=== PATIENT | female | born 1975 | race Caucasian/White ===

== ENCOUNTER 2017-01-17 09:13 | Emergency (ER) | payer MEDICAID ==
[~2017-01-17] VITALS: Ht 160 cm; Wt 145.0 kg
[~2017-01-17 09:13] MED LIST: ALBU8.5H3 INH; GUAI118L94 PO; PRED20TA PO
[2017-01-17 09:16] VITALS: Ht 160 cm; Wt 145.0 kg
[2017-01-17] MEDS ORDERED: ALBUTEROL 0.5% (NEB) 2.5 MG/0.5 ML AMP INH STA ×2 (09:24→10:44)
[2017-01-17] MEDS ORDERED: METHYLPREDNISOLONE 125 MG INJ IV STA (09:24)
[2017-01-17] MEDS ORDERED: SOD CHLORIDE 0.9% 1,000 ML IV STA (09:24)
[2017-01-17] MEDS ORDERED: IPRATROPIUM (NEB) 0.5 MG/2.5 ML AMP INH STA ×2 (09:24→10:44)
[2017-01-17] MEDS ORDERED: LABETALOL HCL 20MG INJ IV ONE ×2 (09:30→12:30)
[2017-01-17 10:04] LABS: ADD SCAN DIFF NO
[2017-01-17 10:13] LABS: BASOPHIL # 0.1 10^3/ul (0.0-0.1); BASOPHILS % 0.5 % (0.0-2.0); EOSINOPHILS # 0.6 10^3/ul (0.0-0.5); EOSINOPHILS % 5.3 % (0.0-7.0); HEMATOCRIT 41.9 % (37.0-47.0); HEMOGLOBIN 14.4 g/dl (12.0-16.0); LYMPHOCYTES # 2.2 10^3/ul (0.8-2.9); LYMPHOCYTES % 20.4 % (15.0-51.0); MEAN CORPUSCULAR HEMOGLOBIN 32.4 pg (29.0-33.0); MEAN CORPUSCULAR HGB CONC 34.4 g/dl (32.0-37.0); MEAN CORPUSCULAR VOLUME 94.2 fl (82.0-101.0); MEAN PLATELET VOLUME 10.8 fl (7.4-10.4); MONOCYTE # 0.7 10^3/ul (0.3-0.9); MONOCYTES % 6.7 % (0.0-11.0); NEUTROPHILS % 66.7 % (39.0-77.0); PLATELET COUNT 146 10^3/UL (140-415); RED BLOOD COUNT 4.45 10^6/ul (4.20-5.40); RED CELL DISTRIBUTION WIDTH 12.9 % (11.5-14.5); WHITE BLOOD COUNT 10.5 10^3/ul (4.8-10.8)
[2017-01-17 10:37] LABS: CHLORIDE 102 mmol/L (97-110); SODIUM 142 mmol/L (135-144)
[2017-01-17 10:38] LABS: POTASSIUM 3.9 mmol/L (3.5-5.1)
[2017-01-17 10:40] LABS: ALANINE AMINOTRANSFERASE 31 IU/L (13-69); ALBUMIN/GLOBULIN RATIO 1.14; ALKALINE PHOSPHATASE 88 IU/L (42-121); ANION GAP 16 (8-16); ASPARTATE AMINO TRANSFERASE 20 IU/L (15-46); BILIRUBIN,INDIRECT 0.5 mg/dl (0-1.1); BILIRUBIN,TOTAL 0.5 mg/dl (0.2-1.3); BLOOD UREA NITROGEN 12 mg/dl (7-20); CARBON DIOXIDE 28 mmol/L (21-31); CREATININE 0.63 mg/dl (0.44-1.00); TOTAL PROTEIN 7.5 g/dl (6.1-8.1)
[2017-01-17 10:41] LABS: CALCIUM 8.6 mg/dl (8.4-10.2); GLUCOSE 125 mg/dl (70-220)
[2017-01-17 10:49] LABS: B-TYPE NATRIURETIC PEPTIDE 39 PG/ML (0-125)
[2017-01-17 10:54] LABS: TROPONIN-I < 0.012 ng/ml (0.00-0.12)
--- NOTE | 2017-01-17 11:10 | RADRPT ---
PROCEDURE: XR Chest. TECHNIQUE: Single frontal radiograph. CLINICAL INDICATION: severe asthma with productive cough. COMPARISON: None. FINDINGS: There is bibasilar atelectasis. The cardiac silhouette is enlarged and/or magnified in the context of low lung volumes. No focal consolidation, pneumothorax, or pleural effusions. IMPRESSION: 1. Bibasilar atelectasis without a focal consolidation. RPTAT: EE .Santiago Watkins MD, MD Date Time Electronically viewed and signed by .Santiago Watkins MD, MD on 01/17/2017 11:14 .C/
[2017-01-17] MEDS ORDERED: MAGNESIUM SULFATE 2 GM/50 ML 50 ML IVPB STA (11:20)
--- NOTE | 2017-01-17 11:27 | ERA ---
ER Documentation Chief Complaint Date/Time DATE: 01/17/17 TIME: 11:21 Chief Complaint sob x last night hx asthma HPI This is a very pleasant 41-year-old female with a known history of asthma. She indicates that over the past 12 hours she has had severe difficulty in breathing which he believes is worsened due to allergies from pollen which exacerbates her asthma. She utilized her inhaler multiple times prior to arrival but had no relief of her symptoms. Given that the dyspnea progressively worsened she immediately came to the emergency department to be further evaluated. She has never required intubation in the past nor has she had a hospital visit in the past year for her asthma. Contrary to the triage note the patient states she is not short of breath at rest or exertion and that this difficulty breathing is similar nature to her previous asthma attacks. The patient denies a headache chest pain or changes in vision. She denies any recent travel. She does indicate she has had a productive cough with whitish sputum but has had no fevers no shaking no chills. ROS All systems reviewed and are negative except as per history of present illness. Medications Home Meds No Active Prescriptions or Reported Meds Allergies Allergies: Coded Allergies: No Known Allergy (Unverified , 01/17/17) PMhx/Soc Medical and Surgical Hx: pt denies Medical Hx, pt denies Surgical Hx Hx Psychiatric Problems: No Hx Miscellaneous Medical Probl: No Hx Alcohol Use: No Hx Substance Use: No Hx Tobacco Use: No Smoking Status: Never smoker Physical Exam Vitals Vital Signs Date Time Temp Pulse Resp B/P Pulse Ox O2 Delivery O2 Flow Rate FiO2 01/17/17 11:01 75 20 100 21 01/17/17 10:37 72 17 158/101 100 01/17/17 09:30 102 22 100 21 01/17/17 09:26 90 22 176/133 99 Room Air 01/17/17 09:16 98.2 100 20 229/112 98 Physical Exam Constitutional:Well-developed. Well-nourished. Patient in severe respiratory distress peer HEENT:Normocephalic. Atraumatic.Pupils were equal round reactive to light. Moist mucous membranes.No tonsillar exudates. Fundoscopy exam showed sharp optic disks bilaterally and venous pulsations were present Neck: No nuchal rigidity. No lymphadenopathy. No posterior cervical spine tenderness or step-offs. Respiratory: Patient using accessory muscles of respiration. Unable to speak more than 2 words at a time before becoming short of breath. Wheezing heard on end auscultation bilaterally. Tachypneic Cardiovascular: Regular rate regular rhythm.No murmurs. No rubs were appreciated.S1, S2 normal. Distal pulses are palpable 2+ bilaterally. GI: Abdomen was soft. Nontender. Non Distended. No pulsatile abdominal masses or bruits. No rebound. No guarding. Bowel sounds were present and normal. Muscle skeletal: Full range of motion of both the upper and lower extremities bilaterally.Normal muscle tone.No assymetrical calf tenderness or swelling. Skin: No petechia, no purpura. No lesions on the palms or the soles of the feet. No maculopapular rash. NEURO: Patient was alert, awake, orientated x3.No facial droop. Gait observed and normal with no ataxia.Speech had regular rate and rhythm. No focal neurological deficits. Result Diagram: 01/17/17 0942 01/17/17 0942 Results 24 hrs Laboratory Tests Test 01/17/17 09:42 White Blood Count 10.510^3/ul Red Blood Count 4.4510^6/ul Hemoglobin 14.4g/dl Hematocrit 41.9% Mean Corpuscular Volume 94.2fl Mean Corpuscular Hemoglobin 32.4pg Mean Corpuscular Hemoglobin Concent 34.4g/dl Red Cell Distribution Width 12.9% Platelet Count 25809^3/UL Mean Platelet Volume 10.8fl Neutrophils % 66.7% Lymphocytes % 20.4% Monocytes % 6.7% Eosinophils % 5.3% Basophils % 0.5% Nucleated Red Blood Cells % 0.0/100WBC Neutrophils # 7.010^3/ul Lymphocytes # 2.210^3/ul Monocytes # 0.710^3/ul Eosinophils # 0.610^3/ul Basophils # 0.110^3/ul Nucleated Red Blood Cells # 0.010^3/ul Sodium Level 142mmol/L Potassium Level 3.9mmol/L Chloride Level 102mmol/L Carbon Dioxide Level 28mmol/L Anion Gap 16 Blood Urea Nitrogen 12mg/dl Creatinine 0.63mg/dl Glucose Level 125mg/dl Calcium Level 8.6mg/dl Total Bilirubin 0.5mg/dl Direct Bilirubin 0.00mg/dl Indirect Bilirubin 0.5mg/dl Aspartate Amino Transf (AST/SGOT) 20IU/L Alanine Aminotransferase (ALT/SGPT) 31IU/L Alkaline Phosphatase 88IU/L Troponin I < 0.012ng/ml B-Type Natriuretic Peptide 39PG/ML Total Protein 7.5g/dl Albumin 4.0g/dl Globulin 3.50g/dl Albumin/Globulin Ratio 1.14 Current Medications Medications (Trade) Dose Ordered Sig/Amarilys Route PRN Reason Start Time Stop Time Status Last Admin Dose Admin Sodium Chloride (NS) 1,000 ml @ 1,000 mls/hr Q1H STAT IV 01/17/17 09:24 01/17/17 10:23 DC 01/17/17 09:46 Albuterol (Proventil 0.5% (Neb)) 10 mg ONCE STAT INH 01/17/17 09:24 01/17/17 09:26 DC 01/17/17 09:32 Ipratropium [place] (Atrovent 0.02% (Neb)) 1 mg ONCE STAT INH 01/17/17 09:24 01/17/17 09:26 DC 01/17/17 09:33 Methylprednisolone Sodium Succinate (Solu-Medrol) 125 mg ONCE STAT IV 01/17/17 09:24 01/17/17 09:26 DC 01/17/17 09:46 Labetalol HCl (Labetalol) 10 mg ONCE ONCE IV 01/17/17 09:30 01/17/17 09:31 DC 01/17/17 09:46 Albuterol (Proventil 0.5% (Neb)) 5 mg ONCE STAT INH 01/17/17 10:44 01/17/17 10:45 DC 01/17/17 10:57 Ipratropium [place] (Atrovent 0.02% (Neb)) 1 mg ONCE STAT INH 01/17/17 10:44 01/17/17 10:45 DC 01/17/17 10:57 Procedures/MDM The patient presented to the emergency department with dyspnea. My differential diagnosis included but was not limited to upper airway obstruction, CHF, pulmonary embolism, cardiac ischemia, pneumonia, pneumothorax, anemia, drug overdose, pulmonary edema, COPD or asthma. The patient was immediately placed in a lawn care worker continuous pulse oximetry and IV access was established by nursing staff. The patients physical exam findings and presentation was suggestive of a severe asthma attack. The patient received continuous nebulizer treatments of albuterol Atrovent was given 125 mg of Solu-Medrol. The patient was no longer using accessory muscles of respiration however upon reevaluation she still continued to have significant wheezing on end auscultation bilaterally. At this time the patient received IV magnesium. She received another continuous nebulizer treatment over an hour and the wheezing still persisted. Therefore at this time I did feel the patient required admission for continuous nebulizer treatments will be placed on a lawn care worker due to her receiving a significant amount of albuterol which could result in sinus tachycardia. This patient also presented to the emergency department with severely elevated blood pressure in addition to her asthma exacerbation. My differential diagnosis included but was not limited to conditions that could end-organ damage such as acute coronary syndrome, acute pulmonary edema, aortic dissection , subarachnoid hemorrhage, intracerebral hemorrhage, cerebral infarction, withdrawal syndromes from beta blockers, or states of catecholamine excess such as pheochromocytoma or drug intoxication. Ancillary lab work was obtained. There was no elevation in the BUN and creatinine to suggest acute renal failure. Electrolytes were normal. Cardiac enzyme was normal and the 12 lead EKG showed no acute ischemic changes or left ventricular hypertrophy. 12 Lead EKG tracing ordered and reviewed by myself showed: Normal sinus rhythm of 90 bpm and no arrhythmia. RI interval normal. QRS duration normal. No ST segment elevation No ST segment depression. No changes consistent with acute ischemia. Given that the patient had an absence of cerebral, ocular, cardiac or renal damage the hypertensive urgency was treated with IV labetolol in the emergency room with improvement of the patient's blood pressure. She has no prior history of hypertension and I did feel her elevated blood pressure could be exacerbated by her severe difficulty breathing when she arrived. I also obtained a chest radiograph which showed no infiltrates pneumothorax or pleural effusion with bilateral atelectasis She will be admitted to the hospitalist Dr. Ta. Critical Care: Time: 45 minutes Treatments/Evaluations: Close monitoring and treatment of unstable vital signs, cardiorespiratory, and neurologic status, while maintaining tight balance of fluid, respiratory, and cardiac interventions. Time does not include performing any of the above billable procedures. Departure Diagnosis: Primary Impression: Asthma with status asthmaticus Qualified Code: J45.52 - Severe persistent asthma with status asthmaticus Additional Impression: Hypertensive urgency Condition: Serious SINCEREJOSE WALLIS Jan 17, 2017 11:27
[2017-01-17] MEDS ORDERED: SOD CHLORIDE 0.45% 1,000 ML IV SCH (11:45)
[2017-01-17] MEDS ORDERED: METHYLPREDNISOLONE 125 MG INJ IV SCH (12:00)
[2017-01-17] MEDS ORDERED: hydrALAzine 20 MG INJ IV PRN (12:00)
[2017-01-17] MEDS ORDERED: morphine 2 MG INJ IV PRN (12:00)
[2017-01-17] MEDS ORDERED: NITROGLYCERIN (SL) 0.4 MG TAB SL PRN (12:00)
[2017-01-17] MEDS ORDERED: ACETAMINOPHEN 325 MG TAB PO PRN ×2 (12:00→13:00)
[2017-01-17] MEDS ORDERED: DOCUSATE SODIUM 100 MG CAP PO PRN (12:00)
[2017-01-17] MEDS ORDERED: ONDANSETRON 4 MG INJ IV PRN ×2 (12:00→13:00)
[2017-01-17] MEDS ORDERED: LORAZEPAM 2 MG INJ IV PRN (12:00)
[2017-01-17] MEDS ORDERED: NA PHOSPHATE/BIPHOS 133 ML ENEMA PR PRN (12:00)
[2017-01-17] MEDS ORDERED: HYDROCODONE/APAP (5/325) TAB PO PRN (12:00)
[2017-01-17] MEDS ORDERED: NACL 0.9% 3 ML SYG IV SCH (12:00)
[2017-01-17] MEDS ORDERED: MAGNESIUM HYDROXIDE 30ML CUP PO PRN (12:00)
[2017-01-17] MEDS ORDERED: LEVOFLOXACIN 750MG/D5W (PMX) 150 ML IVPB SCH (12:30)
[2017-01-17] MEDS ORDERED: ALBUTEROL/IPRATROPIUM (NEB) 3 ML AMP HHN SCH (13:00)
[2017-01-17] MEDS ORDERED: ALBU8.5H3 INH (15:46)
[2017-01-17] MEDS ORDERED: AMLO2.5T2 PO (15:46)
--- NOTE | 2017-01-17 15:46 | PDOCDIS ---
Discharge Instructions CONDITION Patient Condition: Stable HOME CARE INSTRUCTIONS: Diet Instructions: Low Fat /Cholesterol ACTIVITY: Activity Restrictions: Slowly Increase Activity FOLLOW UP/APPOINTMENTS Appointments Please take your medications as prescribed, see your doctor in the clinic in 1 week. JONI SULLIVAN Jan 17, 2017 15:46
[2017-01-17 16:06] VITALS: BP 166/88; PULSE 93; RESP 20
--- NOTE | 2017-01-17 16:10 | HP ---
DATE OF ADMISSION: 01/17/2017 CHIEF COMPLAINT: Shortness of breath. HISTORY OF PRESENT ILLNESS: A 41-year-old female with past medical history of hypertension and asth ma who has been having shortness of breath symptoms going on over the past half day. She had diffic ulty breathing as well. She thinks that her symptoms got worse secondary to exposure to pollen. Kael greenberg normally takes ProAir at home, but she ran out 2 days ago as well. Denied any fevers or chills. No headaches or dizziness or loss of consciousness. No upper or lower GI bleeding. No nausea, vomi ting, no diarrhea, no constipation. She is having coughing, but has been of whitish sputum, but aga in no fevers or chills. When she came into the ER today, she was found with significant wheezing an d has been given breathing treatments x2. She was also found with hypertensive urgency, was given l abetalol IV x1 as well for that. Systolic blood pressure was at 229 diastolic was 112. She also go t magnesium in the ER as well. The patient says that she has had asthma for about 14 years. She ap parently has never been intubated, and apparently it is unclear, but it looks like she has not been hospitalized for any asthma exacerbations in the past. PAST MEDICAL HISTORY: As above. ALLERGIES: NO KNOWN DRUG ALLERGIES. HOME MEDICATIONS: Again, she takes ProAir inhaled q.6h. p.r.n. PAST SURGICAL HISTORY: in the past. SOCIAL HISTORY: Negative for smoking, drinking, or IV drug abuse. FAMILY HISTORY: Noncontributory. PHYSICAL EXAMINATION: VITAL SIGNS: T-max 98.2, pulse 72 to 102, blood pressure 229 to 158 systolic over 112 to 100 diasto lic, saturating at 98% on room air. GENERAL: The patient is sitting up in bed, answering questions appropriately, in mild distress but alert. She is obese. HEENT: Pupils equal, round, react to light. Extraocular muscles intact. NECK: Supple, no thyromegaly. LUNGS: Slight wheezing heard. Expiratory wheezes heard bilaterally at the bases, but no rhonchi, o therwise clear. CARDIOVASCULAR: S1, S2 heard. No rubs or gallops. ABDOMEN: Soft, nontender, nondistended. Normal bowel sounds. No rebound or guarding. MUSCULOSKELETAL: No lower extremity edema bilaterally. NEUROLOGIC: No focal deficits. LABORATORIES: CBC is normal. Comprehensive metabolic panel is normal. Serum hCG test was negative . The chest x-ray showed bibasilar atelectasis with no focal consolidation. ASSESSMENT AND PLAN: A 41-year-old female coming in with signs of asthma exacerbation and hypertens jay urgency. 1. Asthma exacerbation. We will admit her, put her on breathing treatments q.6 h. around the clock . We can give her IV Solu-Medrol as well. Check TSH, A1c and lipid panel. Monitor her breathing s tatus, supplemental oxygen as needed. 2. Hypertensive emergency. Again, put her on hydralazine p.r.n. systolic greater than 160. Consid er starting her on p.o. blood pressure medicines as well. She does not take that at home presently, although she has been told by one clinic in the past that she does have hypertension. 3. Gastrointestinal prophylaxis, proton pump inhibitor.. 4. Deep venous thrombosis prophylaxis, heparin subcutaneously. Dictated By: JONI ORONA Conf#: [id number] DID#: [id number]
--- NOTE | 2017-01-17 16:21 | DS ---
DATE OF ADMISSION: 01/17/2017 DATE OF DISCHARGE: 01/17/2017 HOSPITAL COURSE: The patient came in with asthma exacerbation of hypertensive urgency. She was jesse efly admitted and given breathing treatments x2 and also IV steroids x2 and also magnesium. Her antonina athing symptoms improved. She had run out of her ProAir HFA and medicines 2 days prior to admission . She was able to ambulate and tolerate p.o. diet. She had hypertensive urgency that was improved with the labetalol and also hydralazine and because her symptoms are improved, she will be discharge d home today in improved condition. She will be sent with Norvasc 2.5 mg p.o. daily and also ProAir HFA 1 puff inhaled q.6 hours p.r.n. shortness of breath. She will need to follow up with her [facility] doctor the next 5 to 7 days. FINAL DIAGNOSES: 1. Shortness of breath secondary to asthma exacerbation. 2. Essential hypertension, now on new blood pressure medicines 3. Obesity, educated about diet cessation. OPERATION: 40 minutes. Dictated By: JONI ORONA Conf#: [id number] DID#: [id number]
[2017-01-17] MEDS ORDERED: HEPARIN 5,000 UNIT/0.5 ML VIAL SC SCH (21:00)
[2017-01-18] MEDS ORDERED: PANTOPRAZOLE (EC) 40 MG TAB PO SCH (06:00)
== END 2017-01-17 16:12 | disposition home or self-care (01) ==
LOC: E/R 09:13 → MERGE 09:13 → EDBD 09:13 → E/R 16:12
DX: J45.52 Severe persistent asthma with status asthmaticus (principal); R40.2252 Coma scale, best verbal response, oriented, at arrival to emergency department; I16.0 Hypertensive urgency; R40.2142 Coma scale, eyes open, spontaneous, at arrival to emergency department; R40.2362 Coma scale, best motor response, obeys commands, at arrival to emergency department
CPT/HCPCS: 71010; 80053; 83880; 84439; 84484; 84703; 85025; 87040; 93005; 94644; 94645; 94664; J1956; J2930; J3475; J7030; Z7610; 96374; 96375; 96376

== ENCOUNTER 2017-04-20 15:35 | Emergency (ER) | payer MEDICAID ==
[~2017-04-20] VITALS: Ht 152.4 cm; Wt 143.0 kg
[~2017-04-20 15:35] MED LIST changes: +AMLO2.5T2 PO
[2017-04-20 15:39] VITALS: Ht 152.4 cm; Wt 143.0 kg
--- NOTE | 2017-04-20 17:19 | ERD ---
ER Documentation Chief Complaint Date/Time DATE: 04/20/17 TIME: 17:14 Chief Complaint r knee pain x 2 weeks denies injury HPI 41-year-old female complaining of right knee pain 2 weeks. Patient stated that she has pain when she is walking, or when she is bending her knees. Denies any injury or falls. She made an appointment to see her PCP, but appointment is not until next month. Patient denies prior history of hypertension or any other medical history. Denies headache, chest pain, shortness of breath, or urinary symptoms. ROS All systems reviewed and are negative except as per history of present illness. Medications Home Meds Active Scripts Lisinopril/Hydrochlorothiazide (Lisinopril-Hctz 20-25 mg Tab) 1 Each Tablet, 1 EACH PO BID, #60 TAB Prov:LYNETTE AVENDAÑO NP 04/20/17 Acetaminophen* (Tylophen*) 500 Mg Capsule, 1 CAP PO Q6H Y for PAIN AND OR ELEVATED TEMP, #20 CAP Prov:LYNETTE AVENDAÑO NP 04/20/17 Amlodipine Besylate* (Norvasc*) 2.5 Mg Tablet, 2.5 MG PO DAILY for 30 Days, TAB Prov:RAMIRNA LIUEEP S. 01/17/17 Albuterol Sulfate* (Proair HFA*) 8.5 Gm Hfa.aer.ad, 2 PUFF INH Q6, #1 INHALER Prov:RAHI,JONI S. 01/17/17 Guaifenesin-Codeine Phosphate* (Guaifenesin* with Codeine Liq) 120 Ml Liquid, 5 ML PO Q4H for COUGH, #60 ML Prov:TYRESE MUNOZ NP 01/30/16 Albuterol Sulfate* (Proair HFA*) 8.5 Gm Hfa.aer.ad, 2 PUFF INH Q4H Y for WHEEZING AND SOB, #1 INHALER Prov:TYRESE MUONZ NP 01/30/16 Prednisone* (Prednisone*) 20 Mg Tab, 60 MG PO DAILY for 5 Days, TAB Prov:TYRESE MUNOZ NP 01/30/16 Reported Medications [none] Unknown Strength No Conflict Check 01/30/16 Allergies Allergies: Coded Allergies: No Known Drug Allergies (Verified Allergy, Mild, 12/12/14) PMhx/Soc History of Surgery: Yes (C SECTION 1X) Anesthesia Reaction: No Hx Neurological Disorder: No Hx Respiratory Disorders: Yes (ASTHMA) Hx Cardiac Disorders: Yes (boarderline htn) Hx Psychiatric Problems: No Hx Miscellaneous Medical Probl: No Hx Alcohol Use: No Hx Substance Use: No Hx Tobacco Use: No Physical Exam Vitals Vital Signs Date Time Temp Pulse Resp B/P Pulse Ox O2 Delivery O2 Flow Rate FiO2 04/20/17 16:38 224/103 04/20/17 15:39 98.5 89 18 191/103 98 Physical Exam General: Well-developed, morbidly obese, conscious and coherent, in no distress Skin: Warm and dry without rash, good texture and turgor Head: Normocephalic without evidence of trauma Eyes: Sclera and conjunctivae normal; pupils equal, round, and reactive to light; extraocular movements are intact Chest: Normal AP diameter. Good expansion without retractions. Nontender. Lungs are clear to auscultate bilaterally with good tidal volume Heart: Regular rate and rhythm. No murmur, rub, or gallops heard Abdomen: Soft and nontender without masses, guarding, or rebound. Bowel sounds are active. No hepatosplenomegaly Back: Without spinal or CVA tenderness Pelvis: Nontender to palpation and stable to compression Extremities: Full range of motion. Good strength bilaterally. No clubbing, cyanosis, or edema. Peripheral pulses are intact. Sensation intact. Right knee mildly tender at the medial joint line, crepitus noted with passive range of motion. Neuro: Alert and oriented 4, GCS 15. Cranial nerves grossly intact. Motor and sensory exams nonfocal. Moves all extremities. Speech clear. Gait normal Results 24 hrs Current Medications Medications (Trade) Dose Ordered Sig/Amarilys Route PRN Reason Start Time Stop Time Status Last Admin Dose Admin Nicardipine HCl (Cardene) 30 mg ONCE ONCE PO 04/20/17 17:30 04/20/17 17:31 DC 04/20/17 17:16 PROCEDURE: XR Knee. CLINICAL INDICATION: Knee pain TECHNIQUE: AP, lateral, and oblique views of the right knee are available for review. COMPARISON: None available FINDINGS: There is mild osteoarthritic changes with small osteophytes of the knee joint.. No acute fracture or dislocation is seen. No radiopaque foreign body is identified. Alignment is anatomic. There is no significant joint effusion. IMPRESSION: 1. Mild osteoarthritic changes.. 2. No acute fracture or dislocation is seen. RPTAT: AA .Margarito Temple MD, MD Date Time Electronically viewed and signed by .Margarito Temple MD, on 04/20/2017 17:44 .L/ CC: LYNETTE AVENDAÑO WA[employer] Procedures/MDM Morbidly obese 41-year-old female presented to ED with right knee pain 2 weeks. X-ray showed mild osteoarthritic changes without fractures or dislocations. Patient's blood pressure is markedly elevated in the ED, 191/103. Patient denies headache, blurry vision, chest pain, shortness breath, or urinary symptoms. Patient does not have a hypertensive emergency. Likely, her elevated blood pressure is chronic, secondary to obesity. Nicardipine 30 mg p.o. given to the patient in the ED. On recheck, her blood pressure is reduced to 167/74. Patient is given prescription of lisinopril/hydrochlorothiazide, and advised to follow-up with her PCP for further hypertension management. Patient appears well, stable for discharge and outpatient management. Medical decision making shared with patient and family. Education provided to patient and family. Patient and family expressed understanding of the plan. Medications on discharge: Tylenol, hydrochlorothiazide/lisinopril. Follow-up: Primary care provider in 2-3 days or return to ED if worse. The case was reviewed and discussed with Dr. Roberts, who agrees with the plan of care including labs, treatment, and advanced imaging as appropriate. Disclaimer: Inadvertent spelling and grammatical errors are likely due to EHR/ dictation software use and do not reflect on the overall quality of patient care. Also, please note that the electronic time recorded on this note does not necessarily reflect the actual time of the patient encounter. Departure Diagnosis: Primary Impression: Knee pain Laterality: right Chronicity: unspecified Qualified Code: M25.561 - Right knee pain, unspecified chronicity Additional Impression: HTN (hypertension) Hypertension type: essential hypertension Qualified Code: I10 - Essential hypertension Condition: Stable LYNETTE AVENDAÑO NP Apr 20, 2017 17:19
[2017-04-20] MEDS ORDERED: NICARDipine HCL 30 MG CAPSULE PO ONE (17:30)
--- NOTE | 2017-04-20 17:44 | RADRPT ---
PROCEDURE: XR Knee. CLINICAL INDICATION: Knee pain TECHNIQUE: AP, lateral, and oblique views of the right knee are available for review. COMPARISON: None available FINDINGS: There is mild osteoarthritic changes with small osteophytes of the knee joint.. No acute fracture or dislocation is seen. No radiopaque foreign body is identified. Alignment is anatomic. There is no significant joint effusion. IMPRESSION: 1. Mild osteoarthritic changes.. 2. No acute fracture or dislocation is seen. RPTAT: AA .Margarito Temple MD, MD Date Time Electronically viewed and signed by .Margarito Temple MD, MD on 04/20/2017 17:44 .L/
[2017-04-20] MEDS ORDERED: ACET500C5 PO (17:52)
[2017-04-20] MEDS ORDERED: LISI1TAB8 PO (17:53)
[2017-04-20 18:09] VITALS: BP 167/74; PULSE 83; RESP 18
== END 2017-04-20 18:11 | disposition home or self-care (01) ==
LOC: FTE 15:35
DX: M25.561 Pain in right knee (principal); I10 Essential (primary) hypertension; R40.2412 Glasgow coma scale score 13-15, at arrival to emergency department; J45.909 Unspecified asthma, uncomplicated; E66.01 Morbid (severe) obesity due to excess calories; Z68.44 Body mass index [BMI] 60.0-69.9, adult
CPT/HCPCS: 73562; Z7502; Z7610

== ENCOUNTER 2019-01-14 08:15 | Emergency (ER) | payer MEDICAID ==
[~2019-01-14] VITALS: Ht 152.4 cm; Wt 134.0 kg
[~2019-01-14 08:15] MED LIST changes: +ACET500C5 PO; -ALBU8.5H3 INH; +ALBU8.5H8 INH; +LISI1TAB8 PO
[2019-01-14 08:17] VITALS: PULSE 92; RESP 18; Ht 152.4 cm; Wt 134.0 kg
[2019-01-14 08:42] VITALS: BP 160/74
[2019-01-14] MEDS ORDERED: NAPR-985 PO (09:30)
[2019-01-14] MEDS ORDERED: KETO5DRO71 OP (09:30)
[2019-01-14] MEDS ORDERED: LEVO5TAB28 PO (09:30)
--- NOTE | 2019-01-14 10:10 | ERD ---
ER Documentation Chief Complaint Chief Complaint ITCHY EYES SOB HX OF ALLERGIES HPI 43-year-old female presenting with itchy eyes and swelling noted to the left lower jaw space. Patient has no dental pain. Denies any fevers. Denies any visual changes. Has not taken medications for symptoms. Patient is also stat ing she had some nasal congestion. She has history of seasonal allergies. Denies other medical problems. NKDA. Surgical history denies. Social history denies ROS All systems reviewed and are negative except as per history of present illness. Medications Home Meds Active Scripts Naproxen* (Naprosyn*) 500 Mg Tablet, 500 MG PO BID PRN for PAIN AND/OR INFLAMMATION, #30 TAB Prov:CASTRO HEBERT PA-C 01/14/19 Ketotifen Fumarate (ZADITOR) 5 Ml Drops, 5 ML OP DAILY, #1 BOTTLE Prov:CASTRO HEBERT PA-C 01/14/19 Levocetirizine Dihydrochloride (Xyzal) 5 Mg Tablet, 5 MG PO QPM, #30 TAB Prov:CASTRO HEBERT PA-C 01/14/19 Lisinopril/Hydrochlorothiazide (Lisinopril-Hctz 20-25 mg Tab) 1 Each Tablet, 1 EACH PO BID, #60 TAB Prov:LYNETTE AVENDAÑO NP 04/20/17 Acetaminophen* (Tylophen*) 500 Mg Capsule, 1 CAP PO Q6H PRN for PAIN AND OR ELEVATED TEMP, #20 CAP Prov:LYNETTE AVENDAÑO NP 04/20/17 Amlodipine Besylate* (Norvasc*) 2.5 Mg Tablet, 2.5 MG PO DAILY for 30 Days, TAB Prov:JONI SULLIVAN S. 01/17/17 Albuterol Sulfate* (Proair HFA*) 8.5 Gm Hfa.aer.ad, 2 PUFF INH Q6, #1 INHALER Prov:JONI SULLIVAN S. 01/17/17 Guaifenesin-Codeine Phosphate* (Guaifenesin* with Codeine Liq) 120 Ml Liquid, 5 ML PO Q4H for COUGH, #60 ML Prov:TYRESE MUNOZ NP 01/30/16 Albuterol Sulfate* (Proair HFA*) 8.5 Gm Hfa.aer.ad, 2 PUFF INH Q4H PRN for WHEEZING AND SOB, #1 INHALER Prov:TYRESE MUNOZ NP 01/30/16 Prednisone* (Prednisone*) 20 Mg Tab, 60 MG PO DAILY for 5 Days, TAB Prov:TYRESE MUNOZ NP 01/30/16 Reported Medications [none] Unknown Strength No Conflict Check 01/30/16 Allergies Allergies: Coded Allergies: No Known Drug Allergies (Verified Allergy, Mild, 12/12/14) PMhx/Soc History of Surgery: Yes (C SECTION 1X) Anesthesia Reaction: No Hx Neurological Disorder: No Hx Respiratory Disorders: Yes (ASTHMA) Hx Cardiac Disorders: Yes (boarderline htn) Hx Psychiatric Problems: No Hx Miscellaneous Medical Probl: Yes (arthritis) Hx Alcohol Use: No Hx Substance Use: No Hx Tobacco Use: No Smoking Status: Never smoker FmHx Family History: No diabetes, No coronary disease, No other Physical Exam Vitals Vital Signs Date Temp Pulse Resp B/P (MAP) Pulse Ox O2 O2 Flow FiO2 Time Delivery Rate 01/14/19 160/74 08:42 (102) 01/14/19 97.8 92 18 209/109 99 08:17 (142) Physical Exam GENERAL: The patient is well-appearing, well-nourished, in no acute distress HEENT: Atraumatic. Conjunctivae are pink. Pupils equal, round, and reactive to light. There is no scleral icterus. Tympanic membranes clear bilaterally. Oropharynx clear. No nystagmus or photophobia. Pain with biting. NECK: C-spine is soft and supple. There is no meningismus. There is no cervical lymphadenopathy. CHEST: Clear to auscultation bilaterally. There are no rales, wheezes or rhonchi. HEART: Regular rate and rhythm. No murmurs, clicks, rubs or gallops. SKIN: Warm nodule noted on the left jaw space with no fluctuance. Procedures/MDM MDM: 43-year-old female presenting with seasonal allergies. Patient will be dis charged with supportive medications. I have low suspicion for infectious etiology. I have low suspicion for dental abscess causing nodule in the left lower jaw space. Patient may have calcified or scar tissue type changes to the left upper jaw space. Patient is told symptoms change or worsen to return immediately to the ER. All questions answered at discharge Departure Diagnosis: Primary Impression: Seasonal allergies Condition: Stable Patient Instructions: Salivary Gland Swelling, Unk Cause, Seasonal Allergy Referrals: [facility] YOU HAVE RECEIVED A MEDICAL SCREENING EXAM AND THE RESULTS INDICATE THAT YOU DO NOT HAVE A CONDITION THAT REQUIRES URGENT TREATMENT IN THE EMERGENCY DEPARTMENT. FURTHER EVALUATION AND TREATMENT OF YOUR CONDITION CAN WAIT UNTIL YOU ARE SEEN IN YOUR DOCTORS OFFICE WITHIN THE NEXT 1-2 DAYS. IT IS YOUR RESPONSIBILITY TO MAKE AN APPOINTMENT FOR FOLOW-UP CARE. IF YOU HAVE A PRIMARY DOCTOR --you should call your primary doctor and schedule an appointment IF YOU DO NOT HAVE A PRIMARY DOCTOR YOU CAN CALL OUR PHYSICIAN REFERRAL HOTLINE AT IF YOU CAN NOT AFFORD TO SEE A PHYSICIAN YOU CAN CHOSE FROM THE FOLLOWING [facility] [address] [facility] [address] [facility] [address] [facility] [address] [facility] [address] [facility]. [facility]. [address] Additional Instructions: FOLLOW UP WITH YOUR PRIMARY CARE PHYSICIAN TOMORROW.Return to this facility if you are not improving as expected. CASTRO HEBERT PA-C Jan 14, 2019 10:10
== END 2019-01-14 09:49 | disposition home or self-care (01) ==
LOC: FTE 08:15
DX: J30.1 Allergic rhinitis due to pollen (principal); I10 Essential (primary) hypertension; J45.901 Unspecified asthma with (acute) exacerbation
CPT/HCPCS: 99283

== ENCOUNTER 2019-04-02 09:47 | Emergency (ER) | payer MEDICAID ==
[~2019-04-02] VITALS: Ht 160 cm; Wt 100.0 kg
[~2019-04-02 09:47] MED LIST changes: +KETO5DRO71 OP; +LEVO5TAB28 PO; +NAPR-985 PO
[2019-04-02 09:53] VITALS: RESP 18; Ht 160 cm; Wt 100.0 kg
[2019-04-02] MEDS ORDERED: KETOROLAC 60 MG INJ IM STA (10:16)
[2019-04-02] MEDS ORDERED: AMOX1TAB10 PO (10:26)
[2019-04-02] MEDS ORDERED: IBUP-1542 PO (10:27)
[2019-04-02] MEDS ORDERED: HYDR-4011 PO (10:27)
[2019-04-02] MEDS ORDERED: AMPICILLIN/SULBAC 1.5 GM INJ IM ONE ×3 (10:30→11:00)
[2019-04-02] MEDS ORDERED: OXYCODONE/ACETAMINOPHEN (5/325) TAB PO ONE (10:30)
[2019-04-02] MEDS ORDERED: AMPICILLIN/SULBAC 3 GM INJ IM ONE (10:30)
--- NOTE | 2019-04-02 10:34 | ERD ---
ER Documentation Chief Complaint Chief Complaint tooth ache with swelling left madibulat area HPI 43-year-old female presents with complaint of toothache as well as swelling to the left mandibular area. Patient states that it started 3 days ago. Says that the pain is currently 9 out of 10. States she would like medication for pain. She has not seen her dentist yet. Denies any treatments. Patient denies any fevers, chills, headaches, earaches, difficulty swallowing, trismus. ROS All systems reviewed and are negative except as per history of present illness. Medications Home Meds Active Scripts Ibuprofen* (Motrin*) 600 Mg Tab, 600 MG PO Q6, #30 TAB Prov:CHUCHO FELIX 04/02/19 Hydrocodone/Acetaminophen (Reno 5-325 Tablet) 1 Each Tablet, 1-2 TAB PO Q6H PRN for PAIN, #15 TAB Prov:CHUCHO FELIX 04/02/19 Amoxicillin/Potassium Clav (Amox-Clav 875-125 mg Tablet) 875-125 mg Tab, 1 TAB PO BID for 10 Days, #20 TAB Prov:CHUCHO FELIX 04/02/19 Naproxen* (Naprosyn*) 500 Mg Tablet, 500 MG PO BID PRN for PAIN AND/OR INFLAMMATION, #30 TAB Prov:CASTRO HEBERT PA-C 01/14/19 Ketotifen Fumarate (ZADITOR) 5 Ml Drops, 5 ML OP DAILY, #1 BOTTLE Prov:CASTRO HEBERT PA-C 01/14/19 Levocetirizine Dihydrochloride (Xyzal) 5 Mg Tablet, 5 MG PO QPM, #30 TAB Prov:CASTRO HEBERT PA-C 01/14/19 Lisinopril/Hydrochlorothiazide (Lisinopril-Hctz 20-25 mg Tab) 1 Each Tablet, 1 EACH PO BID, #60 TAB Prov:LYNETTE AVENDAÑO NP 04/20/17 Acetaminophen* (Tylophen*) 500 Mg Capsule, 1 CAP PO Q6H PRN for PAIN AND OR E LEVATED TEMP, #20 CAP Prov:LYNETTE AVENDAÑO NP 04/20/17 Amlodipine Besylate* (Norvasc*) 2.5 Mg Tablet, 2.5 MG PO DAILY for 30 Days, TAB Prov:JONI SULLIVAN S. 01/17/17 Albuterol Sulfate* (Proair HFA*) 8.5 Gm Hfa.aer.ad, 2 PUFF INH Q6, #1 INHALER Prov:MIRNA SULLIVANEEP S. 01/17/17 Guaifenesin-Codeine Phosphate* (Guaifenesin* with Codeine Liq) 120 Ml Liquid, 5 ML PO Q4H for COUGH, #60 ML Prov:TYRESE MUNOZ MEDICARE SALES REPRESENTATIVE 01/30/16 Albuterol Sulfate* (Proair HFA*) 8.5 Gm Hfa.aer.ad, 2 PUFF INH Q4H PRN for WHEEZING AND SOB, #1 INHALER Prov:TYRESE MUNOZ MEDICARE SALES REPRESENTATIVE 01/30/16 Prednisone* (Prednisone*) 20 Mg Tab, 60 MG PO DAILY for 5 Days, TAB Prov:TYRESE MUNOZ MEDICARE SALES REPRESENTATIVE 01/30/16 Reported Medications [none] Unknown Strength No Conflict Check 01/30/16 Allergies Allergies: Coded Allergies: No Known Drug Allergies (Verified Allergy, Mild, 04/02/19) PMhx/Soc History of Surgery: Yes (C SECTION 1X) Anesthesia Reaction: No Hx Neurological Disorder: No Hx Respiratory Disorders: Yes (ASTHMA) Hx Cardiac Disorders: Yes (boarderline htn) Hx Psychiatric Problems: No Hx Miscellaneous Medical Probl: Yes (arthritis) Hx Alcohol Use: No Hx Substance Use: No Hx Tobacco Use: No Smoking Status: Never smoker FmHx Family History: No diabetes, No coronary disease, No other Physical Exam Vitals Vital Signs Date Temp Pulse Resp B/P (MAP) Pulse Ox O2 O2 Flow FiO2 Time Delivery Rate 04/02/19 98.1 78 18 168/89 99 09:53 (115) Physical Exam Const: No acute distress Head: Atraumatic Eyes: Normal Conjunctiva. Moderate swelling of the left mandibular area with no fluctuant masses noted. There is no erythema or tenderness to palpation. Teeth are all intact. There are no periapical abscesses or signs of infection noted. ENT: Normal External Ears, Nose and Mouth. Neck: Full range of motion. No meningismus. Resp: Clear to auscultation bilaterally Cardio: Regular rate and rhythm, no murmurs Abd: Soft, non tender, non distended. Normal bowel sounds Skin: No petechiae or rashes Back: No midline or flank tenderness Ext: No cyanosis, or edema Neur: Awake and alert Psych: Normal Mood and Affect Result Diagram: 04/02/19 1133 04/02/19 1133 Results 24 hrs Laboratory Tests Test 04/02/19 10:28 04/02/19 11:33 POC Beta HCG, Qualitative NEGATIVE White Blood Count 8.0 10^3/ul Red Blood Count 4.18 10^6/ul Hemoglobin 12.8 g/dl Hematocrit 37.6 % Mean Corpuscular Volume 90.0 fl Mean Corpuscular Hemoglobin 30.6 pg Mean Corpuscular Hemoglobin Concent 34.0 g/dl Red Cell Distribution Width 12.8 % Platelet Count 85 10^3/UL Mean Platelet Volume 12.2 fl Immature Granulocytes % 0.300 % Neutrophils % 48.6 % Lymphocytes % 36.1 % Monocytes % 8.4 % Eosinophils % 5.7 % Basophils % 0.9 % Nucleated Red Blood Cells % 0.0 /100WBC Immature Granulocytes # 0.020 10^3/ul Neutrophils # 3.9 10^3/ul Lymphocytes # 2.9 10^3/ul Monocytes # 0.7 10^3/ul Eosinophils # 0.5 10^3/ul Basophils # 0.1 10^3/ul Nucleated Red Blood Cells # 0.0 10^3/ul Sodium Level 141 mmol/L Potassium Level 4.0 mmol/L Chloride Level 104 mmol/L Carbon Dioxide Level 29 mmol/L Anion Gap 8 Blood Urea Nitrogen 15 mg/dl Creatinine 0.73 mg/dl Est Glomerular Filtrat Rate mL/min > 60 mL/min Glucose Level 100 mg/dl Calcium Level 8.4 mg/dl Total Bilirubin 0.3 mg/dl Direct Bilirubin 0.00 mg/dl Indirect Bilirubin 0.3 mg/dl Aspartate Amino Transf (AST/SGOT) 16 IU/L Alanine Aminotransferase (ALT/SGPT) 17 IU/L Alkaline Phosphatase 70 IU/L Total Protein 6.8 g/dl Albumin 3.8 g/dl Globulin 3.00 g/dl Albumin/Globulin Ratio 1.26 Current Medications Medications Dose Sig/Amarilys Start Time Status Last (Trade) Ordered Route PRN Stop Time Admin Dose Reason Admin Ampicillin 3 gm ONCE ONCE 04/02/19 DC Sodium/ IM 10:30 Sulbactam 04/02/19 10:30 Sodium (Unasyn) Oxycodone/ 1 tab ONCE ONCE 04/02/19 DC 04/02/19 Acetaminophen PO 10:30 10:35 (Percocet 04/02/19 10:31 (5/ 325)) Ketorolac 60 mg ONCE STAT 04/02/19 DC 04/02/19 Tromethamine IM 10:16 10:35 (Toradol) 04/02/19 10:18 Ampicillin 3 gm ONCE ONCE 04/02/19 DC Sodium/ IM 10:30 Sulbactam 04/02/19 11:15 Sodium (Unasyn) Ampicillin 1.5 gm ONCE ONCE 04/02/19 DC Sodium/ IM 11:00 Sulbactam 04/02/19 11:16 Sodium (Unasyn) Ampicillin 1.5 gm ONCE ONCE 04/02/19 DC Sodium/ IM 11:00 Sulbactam 04/02/19 11:16 Sodium (Unasyn) Sodium 1,000 ml @ Q1H STAT 04/02/19 DC 04/02/19 Chloride 1,000 mls/hr IV 11:09 11:41 04/02/19 12:08 Ampicillin 100 ml @ ONCE ONCE 04/02/19 DC Sodium/ 100 mls/hr IVPB 11:30 Sulbactam 04/02/19 11:36 Sodium Ampicillin 100 ml @ ONCE IVPB 04/02/19 DC 04/02/19 Sodium/ 100 mls/hr 11:36 11:46 Sulbactam 04/02/19 14:00 Sodium IV Flush 10 ml STK-MED 04/02/19 DC (NS 10 ml) ONCE .ROUTE 12:31 04/02/19 12:32 Sodium 100 ml @ ud STK-MED 04/02/19 DC Chloride ONCE .ROUTE 12:31 04/02/19 12:32 Iohexol 150 ml STK-MED 04/02/19 DC (Omnipaque ONCE .ROUTE 12:31 300mg/ ml) 04/02/19 12:32 Procedures/MDM DIAGNOSTIC IMAGING REPORT Patient: MICHELLE CRAVEN : 1975 Age: 43 Sex: F MR #: [id number] DOS: 04/02/19 1109 Ordering MD: CHUCHO FELIX: [facility] Room/Bed: PROCEDURE: CT FACE WITH CONTRAST CLINICAL INDICATION: Left mandibular swelling. TECHNIQUE: Utilizing a [employer] helical CT scanner, multiple contiguous transaxial images were obtained from the base of skull to clavicles during intravenous administration of 90 cc of Omnipaque-300. In addition to soft tissue and bone windows of transaxial images, multiple sagittal and coronal reformatted images were generated for the interpretation. DIACOM images are available. Radiation dose: CTDIvol = 53 mGy; total DLP = 1002 mGy-cm. One or more of the following dose reduction techniques were used: - Automated exposure control. - Adjustment of the mA and/or kV according to patient size. - Use of iterative reconstruction technique. COMPARISON: None. FINDINGS: Mild to moderate enlargement of the left submandibular gland measuring approximately 41 mm AP x 29 mm TR x 44 mm CC without contrast enhancement and with a cluster of calcifications measuring up to approximately 8 mm is observed. There is no calcified calculus along the expected course of left Whitney duct. There is an enlarged left Level IB non-necrotic lymph node measuring approximately 19 mm in short axis and 29 mm in long axis. Mild to moderate amount of bilateral palatine tonsillar lymphoid tissues without appreciable focal mass is appreciated. The oral cavity, hypopharynx, bilateral parotid glands, the right submandibular glands are normal. There is no destructive bone lesion. Bilateral mastoid air cells and visualized paranasal sinuses are normally aerated. IMPRESSION: 1. Mild to moderate enlargement of the left submandibular gland measuring approximately 41 mm AP x 29 mm TR x 44 mm CC without contrast enhancement and with a cluster of calcifications measuring up to approximately 8 mm could re present a sialadenitis related to of the calcified calculi or a tumor with calcification such as mucoepidermoid carcinoma. 2. The enlarged left Level IB non-necrotic lymph node measuring approximately 19 mm in short axis and 29 mm in long axis represent an inflammatory lymph node related to of the left submandibular sialoadenitis or metastatic lymphadenopathy. 3. Mild to moderate amount of bilateral palatine tonsillar lymphoid tissues without appreciable focal mass. RPTAT: EE Deshaun Pérez, Physician Date Time Electronically viewed and signed by Deshaun Pérez Physician on 04/02/2019 13:52 PH/ CC: CHUCHO FELIX [phone] MDM: CT of the face with contrast was ordered to rule out abscess. CT results showed left submandibular gland swelling which could represent a solid tinnitus or a tumor. I discussed the case my supervising physician Dr. Rabago he stated to give patuent 3 g of Unasyn in the ER and discharged with Augmentin with instructions to follow-up for outpatient treatment. Patient was also given pain medication. Patient was instructed to return if symptoms worsen or she feels that the mass is growing larger. This time of low suspicion for abscess, orbital cellulitis, or any other emergent condition. Patient was advised to see her doctor within 24 hours for outpatient management. All this was explained with electrical and radio mock up mechanic present. At this time, patient is stable for discharge and outpatient management. I have instructed the patient to follow-up with his/her primary care physician in 1-2 days as well as dentist within 1 day. I have discussed with the patient the possibility of needing to see a specialist for further workup and imaging studies if symptoms persist. I have instructed the patient to promptly return to the ER for any new or worsening symptoms including but not limited to increased pain, fever, nausea, vomiting, weakness or LOC. The patient and/or family expressed understanding of and agreement with this plan. All questions were answered. Home care instructions were provided. Communication with patient both during the exam and instructions for discharge were performed with using a electrical and radio mock up mechanic . Patient gave verbal confirmation to the practitioner, through the electrical and radio mock up mechanic, that they understood everythign that was being said to them. DISCLAIMER: Inadvertent spelling and grammatical errors are likely due to EHR/dictation software use and do not reflect on the overall quality of patient care. Also, please note that the electronic time recorded on this note does not necessarily reflect the actual time of the patient encounter. Departure Diagnosis: Primary Impression: Tooth disease Condition: Stable Patient Instructions: Dental Pain Referrals: [facility] YOU HAVE RECEIVED A MEDICAL SCREENING EXAM AND THE RESULTS INDICATE THAT YOU DO NOT HAVE A CONDITION THAT REQUIRES URGENT TREATMENT IN THE EMERGENCY DEPARTMENT. FURTHER EVALUATION AND TREATMENT OF YOUR CONDITION CAN WAIT UNTIL YOU ARE SEEN IN YOUR DOCTORS OFFICE WITHIN THE NEXT 1-2 DAYS. IT IS YOUR RESPONSIBILITY TO MAKE AN APPOINTMENT FOR FOLOW-UP CARE. IF YOU HAVE A PRIMARY DOCTOR --you should call your primary doctor and schedule an appointment IF YOU DO NOT HAVE A PRIMARY DOCTOR YOU CAN CALL OUR PHYSICIAN REFERRAL HOTLINE AT IF YOU CAN NOT AFFORD TO SEE A PHYSICIAN YOU CAN CHOSE FROM THE FOLLOWING [facility] [address] [facility] [address] [facility] [facility] [address] [facility] [address] [facility]. [facility] [address] [facility]. [facility]. [address] Additional Instructions: FOLLOW UP WITH YOUR PRIMARY CARE PHYSICIAN TOMORROW. Also follow-up with your dentist tomorrow as you may need to have your tooth pulled. Return to this facility if you are not improving as expected. CHUCHO FELIX Apr 02, 2019 10:34
[2019-04-02] MEDS ORDERED: SOD CHLORIDE 0.9% 1,000 ML IV STA (11:09)
[2019-04-02] MEDS ORDERED: AMPICILLIN/SULB 3 GM/NS (PMX) 100 ML IVPB ONE (11:30)
[2019-04-02] MEDS ORDERED: AMPICILLIN/SULB 3 GM/NS (PMX) 100 ML IVPB SCH (11:36)
[2019-04-02] MEDS ORDERED: SOD CHLORIDE 0.9% 100 ML ONE (12:31)
[2019-04-02] MEDS ORDERED: IOHEXOL 300MG/ML 150 ML BTL ONE (12:31)
[2019-04-02 14:31] VITALS: BP 184/95; PULSE 61
== END 2019-04-02 14:37 | disposition home or self-care (01) ==
LOC: FTE 09:47
DX: K08.9 Disorder of teeth and supporting structures, unspecified (principal); J45.909 Unspecified asthma, uncomplicated
CPT/HCPCS: 70486; 80053; 81025; 85025; 96365; 96366; 96372; J0295; J1885; J7030; Q9967; Z7502; Z7610